=== PATIENT | female | born 1955 | race Caucasian/White ===

== ENCOUNTER 2016-04-09 07:30 | Outpatient (CLI) | payer BC ==
[2016-04-09 08:42] LABS: ALT (SGPT) 23 U/L (0-55); AST (SGOT) 14 U/L (5-34); Alkaline Phosphatase 74 U/L (40-150); Bilirubin, Direct 0.2 mg/dL (0.1-0.3); Bilirubin, Total 0.6 mg/dL (0.2-1.2); Cardiac Risk 4.2 (Less than 4.5); Cholesterol 238 mg/dL (< 200 Desired); HDL Cholesterol 57 mg/dL (>60 Neg Risk); LDL Cholesterol, Calculated 131 mg/dL; Protein, Total 7.2 g/dL (6.0-8.3); Triglycerides 252 mg/dL (Less than 150)
== END 2016-04-09 07:31 | disposition home or self-care (01) ==
LOC: NAV LAB 07:30
PROVIDERS: ATTEND Internal Medicine Cardiovascular Disease
DX: E11.9 Type 2 diabetes mellitus without complications (principal); E78.2 Mixed hyperlipidemia
CPT/HCPCS: 80061; 80076

== ENCOUNTER 2016-05-13 07:36 | Outpatient (CLI) | payer BC ==
[2016-05-13 08:50] LABS: ALT (SGPT) 23 U/L (0-55); AST (SGOT) 16 U/L (5-34); Albumin 4.2 g/dL (3.5-5.0); Alkaline Phosphatase 78 U/L (40-150); Bilirubin, Direct 0.2 mg/dL (0.1-0.3); Bilirubin, Total 0.7 mg/dL (0.2-1.2); Cholesterol 170 mg/dL (< 200 Desired); HDL Cholesterol 34 mg/dL (>60 Neg Risk); Protein, Total 7.6 g/dL (6.0-8.3); Triglycerides 468 mg/dL (Less than 150)
== END 2016-05-13 07:37 | disposition home or self-care (01) ==
LOC: NAV LAB 07:36
PROVIDERS: ATTEND Internal Medicine Cardiovascular Disease
DX: E11.9 Type 2 diabetes mellitus without complications (principal); E78.2 Mixed hyperlipidemia
CPT/HCPCS: 80061; 80076